=== PATIENT | female | born 1985 | race Asian ===

== ENCOUNTER 2016-09-10 16:30 | Inpatient (IN) | payer SELFPAY ==
[~2016-09-10] VITALS: Ht 168 cm; Wt 52.0 kg
[~2016-09-10 16:30] MED LIST: AMPICILLIN 2,000 MG in NACL 0.9% 100 ML IV SCH
[2016-09-10 17:00] VITALS: BP 113/70
[2016-09-10] MEDS ORDERED: OXYTOCIN 10 UNITS/ML VIAL IM ONE (17:00)
[2016-09-10] MEDS ORDERED: OXYTOCIN 20 UNITS/LR PREMIX 1,000 ML IV SCH (17:08)
[2016-09-10] MEDS ORDERED: METHYLERGONOVINE 0.2 MG/ML AMP IM SCH (17:10)
[2016-09-10] MEDS ORDERED: IBUPROFEN 800 MG TAB PO PRN (17:10)
[2016-09-10] MEDS ORDERED: NALBUPHINE 10 MG/ML AMP IVP PRN (17:10)
[2016-09-10] MEDS ORDERED: CARBOPROST 250 MCG/ML AMP IM PRN (17:10)
[2016-09-10] MEDS ORDERED: PROMETHAZINE 25 MG/ML VIAL IVP PRN (17:10)
[2016-09-10] MEDS ORDERED: ROPIVACAINE 0.2%/NS PREMIX 250 ML EPI ONE (17:14)
[2016-09-10] MEDS ORDERED: AMPICILLIN 2,000 MG VIAL ONE (17:47)
[2016-09-10] MEDS: LACTATED RINGERS 1,000 ML IV SCH ×2 (17:52→19:23)
[2016-09-10 18:00] LABS: BASOPHILS # (AUTO) 0.1 K/uL (0.00-0.22); BASOPHILS % (AUTO) 1.4 % (0.0-2.0); EOSINOPHILS # (AUTO) 0.2 K/uL (0-0.4); EOSINOPHILS % (AUTO) 2.1 % (0.0-4.0); HEMATOCRIT 39.8 % (36-48); HEMOGLOBIN 13.6 g/dL (12.0-16.0); LYMPHOCYTES # (AUTO) 1.6 K/uL (2.5-16.5); LYMPHOCYTES % (AUTO) 18.8 % (20.5-51.1); MEAN CORPUSCULAR HEMOGLOBIN 33 pg (27-31); MEAN CORPUSCULAR HGB CONC 34 g/dL (33-37); MEAN CORPUSCULAR VOLUME 96 fL (80-94); MONOCYTES # (AUTO) 0.8 K/uL (0.8-1.0); MONOCYTES % (AUTO) 10.1 % (1.7-9.3); NEUTROPHILS # (AUTO) 5.6 K/uL (1.8-7.7); NEUTROPHILS % (AUTO) 67.6 % (42.2-75.2); PLATELET COUNT (AUTO) 151 K/uL (140-450); RED BLOOD CELL COUNT(AUTO) 4.14 MIL/uL (4.20-5.40); RED CELL DISTRIBUTION WIDTH 11.9 % (11.6-13.7); WHITE BLOOD COUNT (AUTO) 8.3 K/uL (4.8-10.8)
[2016-09-10 18:09] LABS: APPEARANCE,URINE SL CLOUDY (CLEAR); BILIRUBIN,URINE NEGATIVE (NEGATIVE); BLOOD, URINE 3+ (NEGATIVE); COLOR,URINE YELLOW (YELLOW); LEUKOCYTE ESTERASE ,URINE 1+ (NEGATIVE); NITRITE, URINE NEGATIVE (NEGATIVE); PH,URINE 7.5 (5.0-9.0); PROTEIN,URINE NEGATIVE (NEGATIVE); UGLUCOSE NEGATIVE (NEGATIVE); UROBILINOGEN,URINE 0.2 EU/dL (0.2 - 1)
[2016-09-10 18:10] LABS: ANION GAP 11.5 (8-16); CALCIUM 8.2 mg/dL (8.5-10.1); CARBON DIOXIDE 25.9 mmol/L (21-32); CREATININE 0.6 mg/dL (0.6-1.3); POTASSIUM 3.4 mmol/L (3.5-5.1)
[2016-09-10 18:12] LABS: BACTERIA,URINE 1+ /HPF (None Seen); RBC,URINE 11-20 (MOD) /HPF (0-5); SQUAMOUS EPITHELIAL CELL,UR >10 (MANY) /LPF (0-3 (FEW)); WBC,URINE 16-25 (MOD) /HPF (0-5)
[2016-09-10 18:16] LABS: ALBUMIN 2.3 g/dL (3.4-5.0); TOTAL BILIRUBIN 0.2 mg/dL (0.0-1.0); TOTAL PROTEIN, SERUM 5.5 g/dL (6.4-8.2)
[2016-09-10] MEDS ORDERED: OXYTOCIN 20 UNITS/LR PREMIX 1,000 ML IV ONE (18:28)
[2016-09-10] MEDS ORDERED: PREN-546 PO (19:25)
[2016-09-10] MEDS ORDERED: AMPICILLIN 1,000 MG VIAL IVP SCH (20:00)
[2016-09-10] MEDS ORDERED: AMPICILLIN 1,000 MG in NACL 0.9% 50 ML IV SCH (22:00)
[2016-09-10] MEDS ORDERED: AMPICILLIN 1,000 MG VIAL ONE (22:07)
[2016-09-10] MEDS ORDERED: OXYTOCIN 10 UNITS/ML VIAL ONE (23:24)
[2016-09-11] MEDS ORDERED: HYDROcodone/APAP 5/325 MG 1 TAB TAB PO PRN (01:45)
[2016-09-11] MEDS ORDERED: BENZOCAINE/MENTHOL 20%-0.5% 60 GM CAN TP PRN (01:45)
[2016-09-11] MEDS ORDERED: oxyCODONE/APAP 5/325 MG 1 TAB TAB PO PRN (01:45)
[2016-09-11] MEDS ORDERED: SODIUM PHOSPHATE 118 ML ENEM RC PRN (01:45)
[2016-09-11] MEDS ORDERED: TEMAZEPAM 15 MG CAP PO PRN (01:45)
[2016-09-11] MEDS ORDERED: MEASLES, MUMPS, AND RUBELLA 1 VIAL SQVAC PRN (01:45)
[2016-09-11] MEDS ORDERED: WITCH HAZEL 40 PAD PACKAGE TP PRN (01:45)
[2016-09-11] MEDS ORDERED: METHYLERGONOVINE 0.2 MG/ML AMP ONE (02:00)
[2016-09-11 04:31] LABS: HEMATOCRIT 41.3 % (36-48); HEMOGLOBIN 13.6 g/dL (12.0-16.0)
--- NOTE | 2016-09-11 09:48 | NUR ---
PATIENT HAS BEEN SCREENED AND CATEGORIZED LOW NUTRITION RISK. PATIENT WILL BE SEEN WITHIN 7 DAYS OF ADMISSION. 09/17/[address]
[2016-09-11] MEDS ORDERED: DOCUSATE SOD/SENNA 50/8.6 MG 1 TAB PO SCH (21:00)
[2016-09-12] MEDS ORDERED: SODIUM PHOSPHATE 118 ML ENEM RC PRN (08:35)
== END 2016-09-12 16:20 | disposition home or self-care (01) | DRG 775 ==
LOC: MLD 16:30 → MFCC 09-11 09:09
PROVIDERS: ADMIT Obstetrics & Gynecology; ATTEND Obstetrics & Gynecology
PROC: 10D07Z6 Extraction of Products of Conception, Vacuum, Via Natural or Artificial Opening (ICD-10-PCS; principal; 2016-09-10)
PROC: 0W8NXZZ Division of Female Perineum, External Approach (ICD-10-PCS; 2016-09-10)
PROC: 00HU33Z Insertion of Infusion Device into Spinal Canal, Percutaneous Approach (ICD-10-PCS; 2016-09-10)
PROC: 3E0R3CZ (ICD-10-PCS; 2016-09-10)
PROC: 3E0234Z Introduction of Serum, Toxoid and Vaccine into Muscle, Percutaneous Approach (ICD-10-PCS; 2016-09-12)
DX: O80 Encounter for full-term uncomplicated delivery (principal); Z37.0 Single live birth; Z3A.38 38 weeks gestation of pregnancy; Z23 Encounter for immunization
CPT/HCPCS: 36415; 51702; 59409; 80053; 81001; 85018; 85025; 86592; 86886; 86900; 86901; 87086; 90715; J0290; J2210; J2590; J2795